=== PATIENT | female | born 1990 | race African-American/Black ===

== ENCOUNTER 2016-09-01 18:01 | Emergency (ER) | payer SELFPAY ==
[~2016-09-01] VITALS: Ht 165.1 cm; Wt 70.3 kg
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
[2016-09-01] MEDS ORDERED: TDAP [DIPH/PERTUSSIS/TET] 0.5 ML VIAL IM ONE (18:38)
--- NOTE | 2016-09-01 18:39 | NUR ---
STITCHES GIVEN TO PT TOLERATED WELL
[2016-09-01] MEDS: TDAP [DIPH/PERTUSSIS/TET] 0.5 ML VIAL IM ONE (18:40)
--- NOTE | 2016-09-01 18:40 | NUR ---
PT GIVEN ADAP IM LEFT DELTOID IM TOLERATED WELL
--- NOTE | 2016-09-01 18:47 | NUR ---
PT RELESED FROM CUSTODY CALLING FOR A RIDE PT. VERBALIZED UNDERSTANDING OF AFTERCARE INSTRUCTIONS.Patient discharged to home in stable condition. Written and verbal after care instructions given. Patient verbalizes understanding of instruction.
[2016-09-01 18:52] VITALS: BP 147/86
== END 2016-09-01 18:53 | disposition home or self-care (01) ==
LOC: ER 18:02
DX: S51.811A Laceration without foreign body of right forearm, initial encounter (principal); F10.20 Alcohol dependence, uncomplicated; F17.210 Nicotine dependence, cigarettes, uncomplicated; W25.XXXA Contact with sharp glass, initial encounter; Y93.89 Activity, other specified; Y92.89 Other specified places as the place of occurrence of the external cause; Y99.8 Other external cause status
CPT/HCPCS: 90715; A4606; A6402; Z7610

== ENCOUNTER 2017-06-13 23:09 | Emergency (ER) | payer MEDICAID ==
[~2017-06-13] VITALS: Ht 172.7 cm; Wt 68.0 kg
[2017-06-13 23:19] VITALS: BP 127/79
[2017-06-14] MEDS ORDERED: ALBUTEROL FS 2.5 MG/3 ML VIAL.NEB NEB ONE (01:00)
[2017-06-14] MEDS ORDERED: ALBUTEROL FS 2.5 MG/3 ML VIAL.NEB ONE (01:04)
== END 2017-06-14 01:21 | disposition home or self-care (01) ==
LOC: ER 23:12
DX: J40 Bronchitis, not specified as acute or chronic (principal); F10.10 Alcohol abuse, uncomplicated; F17.200 Nicotine dependence, unspecified, uncomplicated
CPT/HCPCS: A4606; Z7610

== ENCOUNTER 2018-01-22 19:31 | Emergency (ER) | payer MEDICAID ==
[~2018-01-22] VITALS: Ht 172.7 cm; Wt 71.7 kg
[2018-01-22 19:43] VITALS: BP 102/64
[2018-01-22] MEDS ORDERED: FLUORESCEIN SODIUM OPHTH 1 EA STRIP ONE (19:48)
[2018-01-22] MEDS ORDERED: TETRACAINE HCL/PF 0.5% UD 2 ML BOTTLE ONE (19:48)
[2018-01-22] MEDS: TETRAcaine 5 ML BOTTLE EACHEYE ONE (19:50)
[2018-01-22] MEDS: FLUORESCEIN SODIUM OPHTH 1 EA STRIP OP ONE (19:50)
--- NOTE | 2018-01-22 19:50 | NUR ---
DR. AGUIRRE AT BEDSIDE FOR EVAL.
== END 2018-01-22 20:13 | disposition home or self-care (01) ==
LOC: ER 19:33
DX: S05.01XA Injury of conjunctiva and corneal abrasion without foreign body, right eye, initial encounter (principal); F17.200 Nicotine dependence, unspecified, uncomplicated; W22.8XXA Striking against or struck by other objects, initial encounter; Y93.01 Activity, walking, marching and hiking; Y92.096 Garden or yard of other non-institutional residence as the place of occurrence of the external cause; Y99.8 Other external cause status
CPT/HCPCS: A4606; Z7610

== ENCOUNTER 2018-08-06 11:57 | Emergency (ER) | payer MEDICAID, OTHER ==
[~2018-08-06] VITALS: Ht 172.7 cm; Wt 71.7 kg
[2018-08-06 11:57] VITALS: BP 112/71
[2018-08-06] MEDS ORDERED: ACETAMINOPHEN 325 MG TABLET PO ONE (12:30)
[2018-08-06] MEDS ORDERED: ACETAMINOPHEN ES 500 MG TABLET ONE ×2 (12:38→12:40)
== END 2018-08-06 14:58 | disposition home or self-care (01) ==
LOC: ER 11:58
DX: S92.512A Displaced fracture of proximal phalanx of left lesser toe(s), initial encounter for closed fracture (principal); F10.10 Alcohol abuse, uncomplicated; F17.200 Nicotine dependence, unspecified, uncomplicated; Y90.9 Presence of alcohol in blood, level not specified; W18.09XA Striking against other object with subsequent fall, initial encounter; Y93.01 Activity, walking, marching and hiking; Y92.89 Other specified places as the place of occurrence of the external cause; Y99.8 Other external cause status
CPT/HCPCS: 73630; 73660 ×2; 99283; A4606

== ENCOUNTER 2018-08-09 11:57 | Emergency (ER) | payer OTHER ==
[~2018-08-09] VITALS: Ht 172.7 cm; Wt 68.5 kg
[2018-08-09 12:19] VITALS: BP 128/74
== END 2018-08-09 12:22 | disposition home or self-care (01) ==
LOC: ER 12:01
DX: F41.9 Anxiety disorder, unspecified (principal); F10.10 Alcohol abuse, uncomplicated; F17.200 Nicotine dependence, unspecified, uncomplicated; R00.0 Tachycardia, unspecified; Y90.9 Presence of alcohol in blood, level not specified

== ENCOUNTER 2019-07-05 13:36 | Emergency (ER) | payer OTHER ==
[~2019-07-05] VITALS: Ht 172.7 cm; Wt 71.7 kg
[2019-07-05 13:57] VITALS: BP 117/73
[2019-07-05] MEDS ORDERED: KETOROLAC TROMETHAMINE INJ 30 MG/ML VIAL ONE (14:29)
[2019-07-05] MEDS ORDERED: DEXAMETHASONE SOD PHOSPHATE 10 MG/ML VIAL ONE (14:29)
[2019-07-05] MEDS ORDERED: DEXAMETHASONE SOD PHOSPHATE 4 MG/ML VIAL IM ONE (14:30)
[2019-07-05] MEDS ORDERED: DIAZEPAM 5 MG/ML 2 ML DISP.SYRIN IM ONE (14:30)
[2019-07-05] MEDS ORDERED: KETOROLAC TROMETHAMINE INJ 60 MG/2 ML VIAL IM ONE (14:30)
--- NOTE | 2019-07-05 14:30 | NUR ---
PATIENT DENIES BEING .
[2019-07-05] MEDS ORDERED: DIAZEPAM 10 MG TABLET ONE (14:31)
[2019-07-05] MEDS ORDERED: DIAZEPAM 10 MG TABLET PO ONE (15:00)
== END 2019-07-05 16:09 | disposition home or self-care (01) ==
LOC: ER 13:40
DX: M62.838 Other muscle spasm (principal); F10.10 Alcohol abuse, uncomplicated; F17.200 Nicotine dependence, unspecified, uncomplicated; F41.9 Anxiety disorder, unspecified; Y90.9 Presence of alcohol in blood, level not specified
CPT/HCPCS: 72050; 72074; 96372 ×2; 99283; J1100; J1885